=== PATIENT | female | born 2000 | race Two or more races ===

== ENCOUNTER → 2022-02-13 | Emergency (ER) | payer OTHER ==
[~2022-02-13] VITALS: Ht 157.5 cm; Wt 96.6 kg
== END | disposition left against medical advice (07) ==
LOC: ER 21:20
DX: Z53.21 Procedure and treatment not carried out due to patient leaving prior to being seen by health care provider (principal)

== ENCOUNTER 2022-11-23 00:06 | Emergency (ER) | payer OTHER ==
[~2022-11-23] VITALS: Ht 157.5 cm; Wt 102.1 kg
[2022-11-23] MEDS ORDERED: BACTRIM DS TAB1 EACH (00:47)
[2022-11-23] MEDS ORDERED: ONDANSETRON ODT4 MG PO (06:56)
[2022-11-23] MEDS ORDERED: PEPCID40 MG PO (06:56)
[2022-11-23] MEDS ORDERED: INTESTINEX680 M1 PO (06:57)
[2022-11-23] MEDS ORDERED: CEPHALEXIN500 MG PO (06:59)
== END 2022-11-23 07:33 ==
LOC: ER 00:06
PROVIDERS: General Practice
DX: K52.89 Other specified noninfective gastroenteritis and colitis (principal)